=== PATIENT | female | born 1975 | race Two or more races ===

== ENCOUNTER 2022-04-07 09:49 | Outpatient (CLI) | payer OTHER ==
[~2022-04-07 09:49] MED LIST: DOXYCYCLINE HY100 MG PO; PERCOCET 5-3251 EACH PO; ZOCOR20 MG PO
== END 2022-04-07 09:58 | disposition home or self-care (01) ==
LOC: RX STUDY 09:49
PROVIDERS: ATTEND Internal Medicine Gastroenterology
DX: R13.10 Dysphagia, unspecified (principal)

== ENCOUNTER 2023-01-16 07:34 | Outpatient (CLI) | payer OTHER | END 2023-01-16 07:38 | disposition home or self-care (01) | LOC: LAB 07:34 | DX: R68.0 Hypothermia, not associated with low environmental temperature (principal); E55.9 Vitamin D deficiency, unspecified; Z13.0 Encounter for screening for diseases of the blood and blood-forming organs and certain disorders involving the immune mechanism ==

== ENCOUNTER 2023-01-16 08:02 | Outpatient (CLI) | payer OTHER | END 2023-01-16 08:11 | disposition home or self-care (01) | LOC: RAD 08:02 | DX: M46.02 Spinal enthesopathy, cervical region (principal); M99.01 Segmental and somatic dysfunction of cervical region; M46.04 Spinal enthesopathy, thoracic region; M99.02 Segmental and somatic dysfunction of thoracic region; R21 Rash and other nonspecific skin eruption; M99.03 Segmental and somatic dysfunction of lumbar region; M99.04 Segmental and somatic dysfunction of sacral region; M54.16 Radiculopathy, lumbar region ==

== ENCOUNTER 2023-02-23 09:56 | Outpatient (CLI) | payer OTHER | END 2023-02-23 10:03 | disposition home or self-care (01) | LOC: MAMO-SONO 09:56 | PROVIDERS: ATTEND Obstetrics & Gynecology | DX: N60.11 Diffuse cystic mastopathy of right breast (principal); N60.12 Diffuse cystic mastopathy of left breast; Z12.31 Encounter for screening mammogram for malignant neoplasm of breast ==

== ENCOUNTER 2024-03-24 07:00 | Outpatient (CLI) | payer OTHER ==
[2024-03-24 07:40] LABS: URINE APPEARANCE Clear; URINE BILIRRUBIN Negative (NEGATIVE); URINE BLOOD Negative; URINE COLOR Yellow; URINE GLUCOSE Negative (NEGATIVE); URINE LEUKOCYTE Negative; URINE NITRATE Negative; URINE PROTEIN Trace (NEGATIVE)
[2024-03-24 07:41] LABS: HEMATOCRIT 40.6 % (36.0-45.00); HEMOGLOBIN 13.7 g/dL (12.0-15.00); MEAN CELL VOLUME 91.6 fL (80.00-100.00); MEAN CORPUSCULAR HEMOGLOBIN 30.9 pg (27.00-32.0); MEAN CORPUSCULAR HGB CONC 33.7 g/dl (32.0-36.0); PLATELET COUNT 243 K/uL (150-450); RED BLOOD COUNT 4.44 M/uL (4.00-6.00); URINE BACTERIA 187.7 uL (0.0-1933); URINE EPITHELIAL CELLS 27.6 uL (0.0-38.8); URINE RBC 5.1 uL (0.0-20.8)
[2024-03-24 08:33] LABS: ALBUMIN 4.4 gm/dL (3.4-5.0); BILIRUBIN TOTAL 0.47 mg/dL (0.3-1.2); CALCIUM 9.2 mg/dL (8.5-10.1); CHOL HDL RATIO 3.2 (0-5.0); CREATININE SERUM 0.76 mg/dL (0.55-1.02); GFR 81.22; GLOBULINA 3.3 G/DL (2.4-3.5); POTASSIUM 4.3 mEq/L (3.5-5.1); T4 FREE 1.13 NG/ML (0.76-1.46); TOTAL PROTEIN 7.7 gm/dL (6.4-8.2); TSH 0.708 uIU/mL (0.358-3.74)
== END 2024-03-24 07:02 | disposition home or self-care (01) ==
LOC: LAB 07:00
PROVIDERS: ATTEND Obstetrics & Gynecology
DX: E78.2 Mixed hyperlipidemia (principal); I10 Essential (primary) hypertension

== ENCOUNTER 2024-03-31 13:40 | Outpatient (CLI) | payer OTHER | END 2024-03-31 13:44 | disposition home or self-care (01) | LOC: MAMO-SONO 13:40 | PROVIDERS: ATTEND Obstetrics & Gynecology | DX: N60.19 Diffuse cystic mastopathy of unspecified breast (principal) ==